=== PATIENT | male | born 1935 | race Caucasian/White ===

== ENCOUNTER 2019-05-13 12:17 | Inpatient (IN) | payer MEDICARE ==
[2019-05-14] MEDS ORDERED: Acetaminophen 325 MG TAB PO PRN (20:30)
[2019-05-14] MEDS ORDERED: Ventolin HFA Inhaler 60 PUFF INHALER INH PRN (20:30)
[2019-05-14] MEDS ORDERED: Melatonin 3 MG TAB PO PRN (20:36)
[2019-05-14] MEDS ORDERED: cycloSPORINE 0.05% Ophthalmic Droperette EA EYE SCH (21:00)
[2019-05-14] MEDS ORDERED: Fluticasone Propionate Nasal Spray 16 gm Bottle NASAL PRN (21:15)
[2019-05-14] MEDS: Alfuzosin 10 MG TABDR...ER PO SCH (21:22)
[2019-05-14] MEDS: Melatonin 3 MG TAB PO SCH (21:22)
[2019-05-14] MEDS: tiZANidine HCl 4 MG TAB PO SCH (21:24)
[2019-05-14] MEDS: Senokot S 8.6-50 MG TAB PO SCH (21:24)
[2019-05-14] MEDS: cycloSPORINE 0.05% Ophthalmic Droperette EA EYE SCH (21:39)
[2019-05-15 05:06] LABS: #Basophils 0.1 thou/uL (0.0-0.2); #Eosinphils 0.9 thou/uL (0.0-0.7); #Lymphocytes 2.8 thou/uL (1.20-3.40); #Neutrophils 3.9 thou/uL (1.40-6.50); %Basophils 1.4 % (0.0-1.0); %Eosinophils 10.5 % (0.0-10.0); %Lymphocytes 32.7 % (21.0-51.0); %Neutrophils 44.5 % (42.0-75.0); Hemoglobin 7.5 g/dL (14.0-18.0); Mean Corpuscular HGB CONC 33.7 g/dL (32.0-36.0); Mean Corpuscular Hemoglobin 31.1 pg (27.0-31.0); Mean Corpuscular Volume 92.4 fL (78.0-98.0); Platelet Count 208 thou/uL (130-400); RBC Distribution Width 17.9 % (11.5-14.5); White Blood Cell (WBC) Count 8.7 thou/uL (4.8-10.8)
[2019-05-15 05:21] LABS: Anion Gap 12 mmol/L (10-20); BUN (Urea Nitrogen) 14 mg/dL (8.4-25.7); Calc. Creatinine Clearance 73 mL/min (70-130); Calcium 8.2 mg/dL (7.8-10.44); Carbon Dioxide 24 mmol/L (23-31); Chloride 108 mmol/L (98-107); Estimated GFR-MDRD 89; Glucose 108 mg/dL (83-110); Potassium 3.5 mmol/L (3.5-5.1); Sodium 140 mmol/L (136-145)
[2019-05-15] MEDS: Alfuzosin 10 MG TABDR...ER PO SCH ×2 (08:37→20:55)
[2019-05-15] MEDS: Hydrochlorothiazide 25 MG TAB PO SCH (08:39)
[2019-05-15] MEDS: Atorvastatin Calcium 10 MG TAB PO SCH (08:39)
[2019-05-15] MEDS: Potassium Chloride 20 MEQ TAB PO SCH (08:39)
[2019-05-15] MEDS: Allopurinol 100 MG TAB PO SCH (08:40)
[2019-05-15] MEDS: Losartan 25 MG TAB PO SCH (08:41)
[2019-05-15] MEDS: Polyethylene Glycol 3350 17 GM Packet PO SCH (08:41)
[2019-05-15] MEDS: Tamsulosin HCl 0.4 MG CAP PO SCH (08:41)
[2019-05-15] MEDS: Senokot S 8.6-50 MG TAB PO SCH ×2 (08:41→20:58)
[2019-05-15] MEDS: cycloSPORINE 0.05% Ophthalmic Droperette EA EYE SCH ×2 (08:42→20:57)
[2019-05-15] MEDS: Bisacodyl 10 MG SUPP PR SCH (08:43)
[2019-05-15] MEDS ORDERED: Prevnar 13-Val Conj/PF 0.5 ML SYRINGE IM ONE (09:00)
[2019-05-15] MEDS: traMADol HCl 50 MG TAB PO PRN ×2 (10:50→20:58)
--- NOTE | 2019-05-15 10:50 | HP ---
PRIMARY CARE PHYSICIAN: Dr. Allen Garcia in [place]. ORTHOPEDIC: Nehemiah Kelley MD. GASTROENTEROLOGY: Jassi Miller MD. REASON FOR ADMISSION: Skilled rehab in [place] after recent surgery/hospitalization. HISTORY OF THE PRESENT ILLNESS AND HOSPITAL COURSE: Mr. Valles is an 84-year -old male with multiple chronic medical conditions including hypertension, gouty arthropathy, dyslipidemia, testosterone deficiency. The patient had a mechanical fall at home. He reports that he fell in his left side in a standing position. Pelvic x-ray demonstrated intertrochanteric fracture of the left hip. Hip x-ray demonstrated nondisplaced intertrochanteric fracture of the left hip and an x-ray of the left knee was within normal limits. He was taken same day for repair of his left intertrochanteric femur fracture with an implant done by Dr. Nehemiah Kelley. His hospital stay was complicated due to placement issues per records, resulting in having extended period of stay. He was reported to have a complicated GI bleed secondary to known diverticulosis. Dr. Jassi Miller was consulted on this and the patient underwent GI bleed nuclear scan on 05/12/2019 that showed evidence of GI bleed. Patient received blood transfusion. Post transfusion, his hemoglobin was 9.5. He received 1 unit of red blood cells, and his home hemoglobin prior to discharge was 8.1 on 05/14/2019. He was deemed hemodynamically stable prior to discharge, and was transferred to [place]. The patient reports that he was placed on n.p.o. prior due to the rectal bleeding, then his diet was advanced to regular. The patient started clear liquid today and tolerated well. He is requesting not to proceed with regular diet right away at this point. We will start him on full liquids, then probably advance diet in the morning. The patient also reports that prior to discharge today, his blood pressure medications were withheld due to low blood pressure. Current blood pressure is within normal limits at 120/80. He has a due dose of verapamil tonight, but the patient does not want to take it at this point. He reports no recurrence of rectal bleeding at this point. On admission, the patient reports no apparent concerns. He denies chest pain, shortness of breath, pain with breathing, lightheadedness, or near syncope sensation. He reports that he started walking in the hospital prior to discharge and has no problem. He wanted to make sure that he would be getting his melatonin every night as he has had issues with chronic insomnia. He was previously on Lunesta at home. He has been using melatonin in the hospital with no issues. The patient has had a history of testosterone insufficiency and he has been getting testosterone gel as well as sildenafil for this. The patient reports that he does not need to take those 2 medications at this point and he may probably restart it back once he is back home. also emphasized that the patient's BP home medications were adjusted appropriately in the hospital and he is not taking all of them at this point. The patient is asking that he needs to continue his muscle relaxant at night as it really helps him relax. Otherwise, no other particular concern at this time. PAST MEDICAL HISTORY: Hypertension, dyslipidemia, testosterone insufficiency, BPH, diverticulosis, osteoarthritis, gout, asthma. PAST SURGICAL HISTORY: Right hip replacement, back surgeries, left knee replacement, bilateral inguinal hernia repair, and left hip replacement as per HPI. SOCIAL HISTORY: The patient lives at home with . He walks with a walker as is his baseline. He drinks 1 beer per week. He denies history of drug or tobacco use. CURRENT MEDICATIONS: 1. Uroxatral 20 mg p.o. b.i.d. 2. Allopurinol 300 mg p.o. daily. 3. Atorvastatin 20 mg p.o. at bedtime. 4. Dulcolax 10 mg p.o. daily. 5. Ferrous sulfate 300 mg p.o. daily. 6. Fluticasone 1 spray per nostril daily. 7. Hydrochlorothiazide 12.5 mg p.o. daily. 8. DuoNeb 3 mL neb q.4 hours p.r.n. 9. Losartan 50 mg p.o. daily. 10. Melatonin 6 mg p.o. at bedtime. 11. Polyethylene glycol 17 g p.o. daily. 12. Potassium chloride 20 mEq p.o. q.a.m. 13. Restasis one drop each eye b.i.d. 14. Sennoside/docusate two tablets p.o. b.i.d. 15. Tamsulosin 0.4 mg p.o. daily. 16. Tizanidine 4 mg p.o. at bedtime. 17. Tramadol 50 mg p.o. q.6 hours p.r.n. REVIEW OF SYSTEMS: GENERAL: Denies fever. Reports malaise and general weakness. No loss of appetite. HEENT: No acute visual changes or hearing changes. RESPIRATORY: No cough, shortness of breath, active wheezing, pain with breathing, sputum production, or bloody sputum. GI: Per HPI. No nausea, vomiting, hematochezia, hematemesis, or abdominal pain. GENITOURINARY: No dysuria, hematuria, frequency, urgency, incontinence, or gross hematuria. MUSCULOSKELETAL: Reports joint pain, stiffness, joint swelling, and myalgia. NEURO: No focal numbness, focal weakness, seizure, tics, tremors, or loss of consciousness. SKIN: Reports about postoperative site. No other rashes, lesions, or pruritus. PSYCH: Denies depressive symptoms. Anxiety. Reports insomnia. PHYSICAL EXAMINATION: VITAL SIGNS: Temperature 99, respirations 16, O2 sats 98% on room air, and then the blood pressure should be 121/67, and the pulse is initially 105. Weight 175 pounds and 2 ounces. Height 6 feet. GENERAL: The patient is awake, alert, oriented, comfortably resting in bedside chair. is present. No signs of agony or acute distress. HEENT: Normocephalic, atraumatic. PERRL. Anicteric sclerae. Oral mucosa is moist. NECK: Supple. No LAD. FLat JVD, no carotid bruit. CHEST: Normal excursion. Clear to auscultation bilaterally. CARDIAC: RRR. Normal S1 and S2. No murmurs. ABDOMEN: Flat, nondistended, soft. Normoactive bowel sounds. Nontender. No rebound. No guarding. Nontender to percussion. No signs of peritonitis. Negative CVA tenderness bilaterally. EXTREMITIES: No edema. No cyanosis. SKIN: Postoperative site on the left lateral thigh is dry, intact, covered with Steri-Strips. No drainage. No exudate. No surrounding erythema or edema. No signs of infection. Not warm to touch. Nontender to touch. NEUROLOGIC: Nonfocal. GAIT: Gait is steady. PSYCH: Appears calm with appropriate demeanor and affect. Socially interactive. LABORATORY DATA: Previous lab, 05/14/2019; WBC 10, hemoglobin 8.1, hematocrit 24, platelets 228. 05/13/2019; PT 14.8, INR 1.2. Basic metabolic panel on 05/14; sodium 135, potassium 3.6, BUN 19, creatinine 0.83, estimated GFR 88, glucose 106, calcium 8.6, phosphorus 3.3, magnesium 1.8. ASSESSMENT: 1. Deconditioning. 2. Fracture of the left hip, status post mechanical fall at home. 3. Status post left intertrochanteric femur fracture. 4. Diverticulosis with acute gastrointestinal bleeding. 5. Acute severe anemia secondary to gastrointestinal bleeding requiring blood transfusion. 6. General weakness. 7. Hypertension with recent episode of hypotension. 8. Benign prostatic hypertrophy. 9. Dyslipidemia. 10. Chronic insomnia. 11. Muscle spasm. 12. Constipation. 13. Gouty arthropathy. 14. History of testosterone insufficiency. PLAN: The patient is admitted to [facility] for skilled rehab. Refer to PT, OT. Continue all current medications. To hold BP medications for tonight's dose and will closely monitor his blood pressure to adjust medications in the morning. Definitely, no to NSAID and aspirin secondary to history of GI bleeding. We will repeat lab work in the morning. He is weightbearing as tolerated. The patient's pain will be managed with p.r.n. tramadol and tizanidine as well. Constipation management with stool softener. The patient has currently remained hemodynamically stable at this point without acute signs of decompensation. Per GI notes, the patient will likely remain with hematochezia or bright red blood, but this would stop eventually. Currently asymptomatic. Routine lab monitoring. DIET: Full liquid to advance as tolerated in the morning. DVT prophylaxis with LISA hose. CODE STATUS: The patient reports FULL CODE and is agreeable. ESTIMATED LENGTH OF STAY: 1-2 weeks FOLLOWUP: Follow up with Dr. Jassi Miller in 2-[address] Kelley in 4 to 6 weeks or as previously scheduled. DISPOSITION: Home. He will go home with [facility] per 's request. Job ID: [id number] [facility]
[2019-05-15] MEDS ORDERED: Ferrous Sulfate 325 MG TAB PO SCH (12:00)
[2019-05-15] MEDS: Melatonin 3 MG TAB PO SCH (20:55)
[2019-05-15] MEDS: tiZANidine HCl 4 MG TAB PO SCH (20:58)
[2019-05-16] MEDS: Acetaminophen 325 MG TAB PO PRN ×2 (02:33→21:24)
[2019-05-16 07:00] LABS: Hemoglobin 7.6 g/dL (14.0-18.0); Platelet Count 214 thou/uL (130-400)
[2019-05-16] MEDS: Polyethylene Glycol 3350 17 GM Packet PO SCH (08:48)
[2019-05-16] MEDS: Tamsulosin HCl 0.4 MG CAP PO SCH (08:48)
[2019-05-16] MEDS: Ferrous Sulfate 325 MG TAB PO SCH (08:48)
[2019-05-16] MEDS: Losartan 25 MG TAB PO SCH (08:49)
[2019-05-16] MEDS: Senokot S 8.6-50 MG TAB PO SCH ×2 (08:49→21:24)
[2019-05-16] MEDS: Allopurinol 100 MG TAB PO SCH (08:49)
[2019-05-16] MEDS: cycloSPORINE 0.05% Ophthalmic Droperette EA EYE SCH ×2 (08:49→21:23)
[2019-05-16] MEDS: Bisacodyl 10 MG SUPP PR SCH (08:50)
[2019-05-16] MEDS: Potassium Chloride 20 MEQ TAB PO SCH (08:50)
[2019-05-16] MEDS: Atorvastatin Calcium 10 MG TAB PO SCH (08:50)
[2019-05-16] MEDS: Hydrochlorothiazide 25 MG TAB PO SCH (08:50)
[2019-05-16] MEDS: Alfuzosin 10 MG TABDR...ER PO SCH ×2 (08:50→21:22)
[2019-05-16] MEDS: Melatonin 3 MG TAB PO SCH (21:23)
[2019-05-16] MEDS: tiZANidine HCl 4 MG TAB PO SCH (21:24)
[2019-05-17] MEDS: traMADol HCl 50 MG TAB PO PRN (00:54)
[2019-05-17 07:08] LABS: Hemoglobin 7.3 g/dL (14.0-18.0); Platelet Count 233 thou/uL (130-400)
[2019-05-17] MEDS: Allopurinol 100 MG TAB PO SCH (08:17)
[2019-05-17] MEDS: Ferrous Sulfate 325 MG TAB PO SCH (08:17)
[2019-05-17] MEDS: Alfuzosin 10 MG TABDR...ER PO SCH ×2 (08:17→21:18)
[2019-05-17] MEDS: Potassium Chloride 20 MEQ TAB PO SCH (08:18)
[2019-05-17] MEDS: cycloSPORINE 0.05% Ophthalmic Droperette EA EYE SCH ×2 (08:18→21:20)
[2019-05-17] MEDS: Bisacodyl 10 MG SUPP PR SCH (08:18)
[2019-05-17] MEDS: Polyethylene Glycol 3350 17 GM Packet PO SCH (08:18)
[2019-05-17] MEDS: Atorvastatin Calcium 10 MG TAB PO SCH (08:18)
[2019-05-17] MEDS: Senokot S 8.6-50 MG TAB PO SCH ×2 (08:19→21:19)
[2019-05-17] MEDS: Tamsulosin HCl 0.4 MG CAP PO SCH (08:25)
[2019-05-17] MEDS: Losartan 25 MG TAB PO SCH (08:25)
[2019-05-17] MEDS ORDERED: Bisacodyl 10 MG SUPP PR PRN (08:42)
[2019-05-17] MEDS: Acetaminophen 325 MG TAB PO PRN (21:17)
[2019-05-17] MEDS: tiZANidine HCl 4 MG TAB PO SCH (21:18)
[2019-05-17] MEDS: Melatonin 3 MG TAB PO SCH (21:20)
[2019-05-18 05:05] LABS: Platelet Count 254 thou/uL (130-400)
[2019-05-18] MEDS: Tamsulosin HCl 0.4 MG CAP PO SCH (08:31)
[2019-05-18] MEDS: Polyethylene Glycol 3350 17 GM Packet PO SCH (08:31)
[2019-05-18] MEDS: Allopurinol 100 MG TAB PO SCH (08:31)
[2019-05-18] MEDS: Senokot S 8.6-50 MG TAB PO SCH ×2 (08:32→20:52)
[2019-05-18] MEDS: Potassium Chloride 20 MEQ TAB PO SCH (08:32)
[2019-05-18] MEDS: Alfuzosin 10 MG TABDR...ER PO SCH ×2 (08:32→20:51)
[2019-05-18] MEDS: Atorvastatin Calcium 10 MG TAB PO SCH (08:32)
[2019-05-18] MEDS: Ferrous Sulfate 325 MG TAB PO SCH (08:33)
[2019-05-18] MEDS: cycloSPORINE 0.05% Ophthalmic Droperette EA EYE SCH ×2 (08:33→20:52)
[2019-05-18] MEDS: Melatonin 3 MG TAB PO SCH (20:51)
[2019-05-18] MEDS: tiZANidine HCl 4 MG TAB PO SCH (20:52)
[2019-05-18] MEDS: Acetaminophen 325 MG TAB PO PRN (20:54)
[2019-05-18] MEDS: traMADol HCl 50 MG TAB PO PRN (23:10)
[2019-05-19] MEDS: traMADol HCl 50 MG TAB PO PRN (05:00)
[2019-05-19] MEDS: Polyethylene Glycol 3350 17 GM Packet PO SCH (08:42)
[2019-05-19] MEDS: Alfuzosin 10 MG TABDR...ER PO SCH ×2 (08:42→21:14)
[2019-05-19] MEDS: Allopurinol 100 MG TAB PO SCH (08:43)
[2019-05-19] MEDS: Senokot S 8.6-50 MG TAB PO SCH ×2 (08:43→21:14)
[2019-05-19] MEDS: Potassium Chloride 20 MEQ TAB PO SCH (08:43)
[2019-05-19] MEDS: Ferrous Sulfate 325 MG TAB PO SCH (08:43)
[2019-05-19] MEDS: Tamsulosin HCl 0.4 MG CAP PO SCH (08:43)
[2019-05-19] MEDS: Atorvastatin Calcium 10 MG TAB PO SCH (08:43)
[2019-05-19] MEDS: cycloSPORINE 0.05% Ophthalmic Droperette EA EYE SCH ×2 (08:44→21:13)
[2019-05-19] MEDS: Melatonin 3 MG TAB PO SCH (21:13)
[2019-05-19] MEDS: tiZANidine HCl 4 MG TAB PO SCH (21:13)
[2019-05-19] MEDS: Acetaminophen 325 MG TAB PO PRN (21:13)
[2019-05-20] MEDS: Polyethylene Glycol 3350 17 GM Packet PO SCH (08:26)
[2019-05-20] MEDS: Atorvastatin Calcium 10 MG TAB PO SCH (08:26)
[2019-05-20] MEDS: cycloSPORINE 0.05% Ophthalmic Droperette EA EYE SCH ×2 (08:27→21:11)
[2019-05-20] MEDS: Senokot S 8.6-50 MG TAB PO SCH ×2 (08:27→21:11)
[2019-05-20] MEDS: Allopurinol 100 MG TAB PO SCH (08:27)
[2019-05-20] MEDS: Alfuzosin 10 MG TABDR...ER PO SCH ×2 (08:27→21:11)
[2019-05-20] MEDS: Tamsulosin HCl 0.4 MG CAP PO SCH (08:27)
[2019-05-20] MEDS: Ferrous Sulfate 325 MG TAB PO SCH (08:28)
[2019-05-20] MEDS: Potassium Chloride 20 MEQ TAB PO SCH (08:28)
[2019-05-20] MEDS ORDERED: Hydrocerin (Eucerin) Cream 120 gm Jar TOP PRN (10:32)
[2019-05-20] MEDS ORDERED: EUCERIN CREME 57 GRAM TUBE TP PRN (11:00)
[2019-05-20] MEDS ORDERED: Acetaminophen 325 MG TAB PO PRN (18:22)
[2019-05-20] MEDS: Acetaminophen 325 MG TAB PO PRN (21:11)
[2019-05-20] MEDS: tiZANidine HCl 4 MG TAB PO SCH (21:11)
[2019-05-20] MEDS: Melatonin 3 MG TAB PO SCH (21:12)
[2019-05-20] MEDS: EUCERIN CREME 57 GRAM TUBE TP SCH (21:14)
[2019-05-21] MEDS: traMADol HCl 50 MG TAB PO PRN ×2 (00:28→20:15)
[2019-05-21 05:07] LABS: Hemoglobin 7.9 g/dL (14.0-18.0); Platelet Count 281 thou/uL (130-400)
[2019-05-21] MEDS: Allopurinol 100 MG TAB PO SCH (08:20)
[2019-05-21] MEDS: cycloSPORINE 0.05% Ophthalmic Droperette EA EYE SCH ×2 (08:21→20:21)
[2019-05-21] MEDS: Atorvastatin Calcium 10 MG TAB PO SCH (08:21)
[2019-05-21] MEDS: Alfuzosin 10 MG TABDR...ER PO SCH ×2 (08:22→20:17)
[2019-05-21] MEDS: EUCERIN CREME 57 GRAM TUBE TP SCH ×2 (08:22→20:20)
[2019-05-21] MEDS: Potassium Chloride 20 MEQ TAB PO SCH (08:22)
[2019-05-21] MEDS: Ferrous Sulfate 325 MG TAB PO SCH (08:22)
[2019-05-21] MEDS: Tamsulosin HCl 0.4 MG CAP PO SCH (08:22)
[2019-05-21] MEDS: Senokot S 8.6-50 MG TAB PO SCH ×2 (08:22→20:18)
[2019-05-21] MEDS: Polyethylene Glycol 3350 17 GM Packet PO SCH (08:23)
[2019-05-21] MEDS ORDERED: tiZANidine HCl 4 MG TAB PO SCH (11:15)
[2019-05-21 13:24] VITALS: BMI 24.4
[2019-05-21] MEDS: tiZANidine HCl 4 MG TAB PO SCH (20:18)
[2019-05-21] MEDS: Melatonin 3 MG TAB PO SCH (20:18)
[2019-05-21] MEDS: Acetaminophen 325 MG TAB PO PRN (23:14)
[2019-05-22 07:13] VITALS: BP 134/76; TEMP 97.5
[2019-05-22] MEDS: Senokot S 8.6-50 MG TAB PO SCH (08:18)
[2019-05-22] MEDS: Alfuzosin 10 MG TABDR...ER PO SCH (08:19)
[2019-05-22] MEDS: Atorvastatin Calcium 10 MG TAB PO SCH (08:19)
[2019-05-22] MEDS: Allopurinol 100 MG TAB PO SCH (08:19)
[2019-05-22] MEDS: Ferrous Sulfate 325 MG TAB PO SCH (08:19)
[2019-05-22] MEDS: Potassium Chloride 20 MEQ TAB PO SCH (08:19)
[2019-05-22] MEDS: Tamsulosin HCl 0.4 MG CAP PO SCH (08:19)
[2019-05-22] MEDS: Polyethylene Glycol 3350 17 GM Packet PO SCH (08:19)
[2019-05-22] MEDS: EUCERIN CREME 57 GRAM TUBE TP SCH (08:20)
[2019-05-22] MEDS: cycloSPORINE 0.05% Ophthalmic Droperette EA EYE SCH (08:20)
== END 2019-05-22 18:45 | disposition home health service (06) | DRG 559 ==
LOC: MADMS 05-14 18:28
PROVIDERS: ADMIT Family Medicine; ATTEND Family Medicine
DX: S72.142D Displaced intertrochanteric fracture of left femur, subsequent encounter for closed fracture with routine healing (principal); K57.91 Diverticulosis of intestine, part unspecified, without perforation or abscess with bleeding; D62 Acute posthemorrhagic anemia; R53.81 Other malaise; I10 Essential (primary) hypertension; N40.0 Benign prostatic hyperplasia without lower urinary tract symptoms; E78.5 Hyperlipidemia, unspecified; F51.04 Psychophysiologic insomnia; M62.838 Other muscle spasm; K59.00 Constipation, unspecified; M10.9 Gout, unspecified; J45.909 Unspecified asthma, uncomplicated; Z96.641 Presence of right artificial hip joint; Z96.653 Presence of artificial knee joint, bilateral; Z79.899 Other long term (current) drug therapy; W18.30XD Fall on same level, unspecified, subsequent encounter
CPT/HCPCS: 36415; 80048; 85014; 85018; 85025; 85049; 90471; 90670; G0009